=== PATIENT | male | born 1980 | race Caucasian/White ===

== ENCOUNTER 2017-10-04 15:46 | Emergency (ER) | payer BC ==
--- NOTE | 2017-10-04 16:18 | ED ---
Adult Trauma - HPI Summary HPI Summary: 37-year-old male presents with neck injury and head injury after falling down a flight of stairs today. He states he was carrying 70 pounds and slipped backwards and fell down at least 12 stairs. He denies any loss consciousness. He states his little nauseous but denies any vomiting. He denies any upper or lower extremity pain. Fall was mechanical. He denies any chest pain or abdominal pain. He hasn't taking anything for his symptoms. He states he is suffering from a cold. He has two superficial lacerations. His tetanus is up to date. - History of Current Complaint Chief Complaint: EDNeckComplaint Stated Complaint: FALL Time Seen by Provider: 10/04/17 15:52 Pain Intensity: 2 - Allergy/Home Medications Allergies/Adverse Reactions: Allergies Allergy/AdvReac Type Severity Reaction Status Date / Time cefaclor [From Ceclor] Allergy Unknown Verified 10/04/17 15:50 Reaction Details PMH/Surg Hx/FS Hx/Imm Hx Endocrine/Hematology History: Denies: Hx Anticoagulant Therapy Respiratory History: Denies: Hx Asthma Infectious Disease History: No Infectious Disease History: Denies: Traveled Outside the [place] in Last 30 Days - Family History Known Family History: Positive: Hypertension - Social History Alcohol Use: None Substance Use Type: Reports: None Smoking Status (MU): Unknown if Ever Smoked Review of Systems Negative: Fever Negative: Chest Pain Negative: Shortness Of Breath Positive: Other - neck injury Positive: Headache All Other Systems Reviewed And Are Negative: Yes Physical Exam Triage Information Reviewed: Yes Vital Signs On Initial Exam: Initial Vitals Temp Pulse Resp BP Pulse Ox 98.4 F 84 16 119/83 98 10/04/17 15:48 10/04/17 15:48 10/04/17 15:48 10/04/17 15:48 10/04/17 15:48 Vital Signs Reviewed: Yes Appearance: Positive: Well-Appearing Skin: Positive: Warm, Dry, Other - flap to left thumb, superficial 1cm laceration to side of face, 2cm superficial left knee laceration Head/Face: Positive: Normal Head/Face Inspection, Other - no step off, racoon eyes, vasquez sign Eyes: Positive: Normal, EOMI, ASHLEY, Conjunctiva Clear ENT: Positive: Normal ENT inspection, Pharynx normal, TMs normal Neck: Positive: Other: - c-collar in place Respiratory/Lung Sounds: Positive: Clear to Auscultation, Breath Sounds Present Cardiovascular: Positive: Normal, RRR Neurological: Positive: Sensory/Motor Intact, Alert, Oriented to Person Place, Time, CN Intact II-III Psychiatric: Positive: Normal Procedures - Laceration/Wound Repair 1 Location: Other - left thumb Description: Irregular Length, Depth and Shape: 1cm flap on distal phalanx Irrigated w/ Saline (ccs): 50 Closure: Skin Adhesive 2 Location: face Description: Linear Length, Depth and Shape: 1cm superficial Irrigated w/ Saline (ccs): 50 Closure: Skin Adhesive 3 Location: Other - left knee Description: Linear Irrigated w/ Saline (ccs): 50 Closure: Skin Adhesive, SteriStrips Diagnostics - Vital Signs Vital Signs Temp Pulse Resp BP Pulse Ox 10/04/17 15:48 98.4 F 84 16 119/83 98 - Laboratory Lab Statement: Any lab studies that have been ordered have been reviewed, and results considered in the medical decision making process. - Radiology knee Xray Interpretation: No Acute Changes Radiology Interpretation Completed By: Radiologist - CT brain CT Interpretation: No Acute Changes CT Interpretation Completed By: Radiologist neck CT Interpretation: No Acute Changes CT Interpretation Completed By: Radiologist Adult Trauma Course/Dx - Course Course Of Treatment: 37-year-old male presents with neck injury and head injury after falling down a flight of stairs today. He states he was carrying 70 pounds and slipped backwards and fell down at least 12 stairs. He denies any loss consciousness. He states his little nauseous but denies any vomiting. He denies any upper or lower extremity pain. Fall was mechanical. He denies any chest pain or abdominal pain. He hasn't taking anything for his symptoms. He states he is suffering from a cold. He has two superficial lacerations. His tetanus is up to date. on exam has neck pain, normal neuro exam. due to mechanism will get CT. glued lacerations. CT brain and neck normal. when tried to get discharge patient remebered that has knee pain and laceration to knee. cleaned and glue laceration to knee. xray knee normal. will have follow up with primary. patient understand and agrees with plan. - Diagnoses Differential Diagnosis/HQI/PQRI: Positive: Abrasion(s), Contusion(s), Fracture Provider Diagnoses: Head injury, Neck pain, Left knee pain, Laceration Discharge - Sign-Out/Discharge Documenting (check all that apply): Discharge - Discharge Plan Condition: Good Disposition: HOME Patient Education Materials: Head Injury (ED), Neck Pain (ED) Referrals: No Primary Care Phys,NOPCP [Primary Care Provider] - Additional Instructions: Place ice/heat on area as needed Take Tylenol or ibuprofen for headache every 6 hours Modify activities as tolerated Follow up with primary within 5 days Return to ED if develop any new or worsening symptoms - Billing Disposition and Condition Condition: GOOD Disposition: HOME
--- NOTE | 2017-10-04 17:15 | RAD ---
HISTORY: Head injury, fall COMPARISONS: None TECHNIQUE: Multiple contiguous axial CT scans were obtained of the head without intravenous contrast. FINDINGS: HEMORRHAGE/INFARCT: There is no hemorrhage or acute infarct. MASSES/SHIFT: There is no mass or shift. EXTRA-AXIAL SPACES: There are no extra-axial fluid collections. SULCI AND VENTRICLES: The sulci and ventricles are normal in size and position for the patient's stated age. CEREBRUM: There are no focal parenchymal abnormalities. BRAINSTEM: There are no focal parenchymal abnormalities. CEREBELLUM: There are no focal parenchymal abnormalities. VESSELS: The vessels are grossly normal. PARANASAL SINUSES: The paranasal sinuses are clear. ORBITS: The orbits are unremarkable. BONES AND SOFT TISSUE: No bone or soft tissue abnormalities are noted. Incidentally noted is a dysraphic defect of the posterior arch of C1. OTHER: None IMPRESSION: NO ACUTE INTRACRANIAL PATHOLOGY.
--- NOTE | 2017-10-04 17:18 | RAD ---
HISTORY: Head injury, fall, neck pain COMPARISONS: None TECHNIQUE: Multiple contiguous axial CT scans were obtained of the cervical spine without intravenous contrast, with coronal and sagittal multiplanar reformations. FINDINGS: BRAIN: The visualized brain is unremarkable CENTRAL CANAL: Evaluation of the central canal is limited on CT technique; however, there is no obvious canalicular mass or epidural hemorrhage. ALIGNMENT: There is straightening of the cervical lordosis. VERTEBRAL BODIES: There is no displaced fracture. Incidentally noted is a dysraphic defect of the posterior arch of C1. JOINTS: There is mild uncovertebral hypertrophy. MUSCULATURE: Unremarkable INTERVERTEBRAL DISCS: There is mild diffuse loss of intervertebral disc height. AXIAL IMAGES: On axial images, there is no significant central foraminal area or central canal stenosis. SOFT TISSUES: The visualized soft tissues of the neck are unremarkable. The prevertebral fat stripe is preserved. OTHER: None. IMPRESSION: MILD DEGENERATIVE CHANGES. NO ACUTE OSSEOUS INJURY TO THE CERVICAL SPINE
--- NOTE | 2017-10-04 19:04 | RAD ---
HISTORY: Left knee pain, fall COMPARISONS: None VIEWS: 4, Frontal, lateral, axial, and oblique views of the left knee FINDINGS: BONE DENSITY: Normal. BONES: There is no displaced fracture. JOINTS: There is no arthropathy. There is no suprapatellar joint effusion or lipohemarthrosis. ALIGNMENT: There is no dislocation. SOFT TISSUES: Unremarkable. OTHER FINDINGS: None. IMPRESSION: NO ACUTE OSSEOUS INJURY. IF SYMPTOMS PERSIST, RECOMMEND REPEAT IMAGING.
[2017-10-04 19:29] VITALS: BP 141/82
== END 2017-10-04 19:29 | disposition home or self-care (01) ==
LOC: ED 15:46
DX: S61.012A Laceration without foreign body of left thumb without damage to nail, initial encounter (principal); S01.81XA Laceration without foreign body of other part of head, initial encounter; S81.012A Laceration without foreign body, left knee, initial encounter; W10.9XXA Fall (on) (from) unspecified stairs and steps, initial encounter; Y92.9 Unspecified place or not applicable; M54.2 Cervicalgia; M25.562 Pain in left knee
CPT/HCPCS: 70450; 72125; 99283